=== PATIENT | male | born 1980 | race Caucasian/White ===

== ENCOUNTER → 2020-07-15 10:23 | Outpatient (CLI) | payer OTHER, SELFPAY ==
[2020-07-15 11:14] LABS: COVID19 -Nasal RAPID Negative (Negative)
== END ==
PROVIDERS: Visit Provider Physician Assistant
DX: Z20.822 Contact with and (suspected) exposure to COVID-19 (principal)
CPT/HCPCS: 87635

== ENCOUNTER → 2023-02-07 17:11 | Outpatient (CLI) | payer OTHER, SELFPAY ==
[2023-02-07 19:40] LABS: Rubella Antibody IgG 61.5 IU/mL (>15)
[2023-02-07 19:48] LABS: Hep C Virus Ab w/Reflex Quant NEGATIVE s/c (NEGATIVE)
[2023-02-09 06:22] LABS: Hepatitis A Antibody Total Positive (Negative)
[2023-02-09 08:45] LABS: Rubeola Measles IgG 40.2 AU/mL (Immune >16.4)
[2023-02-10 12:59] LABS: Hepatitis B Core Antibody Negative (Negative)
[2023-02-11 22:31] LABS: QuantiFERON Mitogen Value >10.00 IU/mL (.); QuantiFERON TB Gold Plus Negative (Negative)
== END ==
PROVIDERS: PCP Family Medicine; Referring Provider Family Medicine; Visit Provider Family Medicine
DX: Z00.00 Encounter for general adult medical examination without abnormal findings (principal); Z02.1 Encounter for pre-employment examination; Z11.59 Encounter for screening for other viral diseases
CPT/HCPCS: 36415; 86480; 86704; 86708; 86735; 86762; 86765; 86803

== ENCOUNTER → 2023-02-08 10:18 | Outpatient (CLI) | payer OTHER, SELFPAY ==
[2023-02-09 08:45] LABS: Varicella IgG Antibody 1424 index (Immune >165)
== END ==
PROVIDERS: PCP Family Medicine; Referring Provider Family Medicine; Visit Provider Family Medicine
DX: Z00.00 Encounter for general adult medical examination without abnormal findings (principal); Z02.1 Encounter for pre-employment examination
CPT/HCPCS: 36415; 86787

== ENCOUNTER → 2023-02-11 16:02 | Outpatient (CLI) | payer OTHER, SELFPAY ==
[2023-02-14 04:38] LABS: Hepatitis B Surf Ab Qualitativ Reactive (.)
== END ==
PROVIDERS: PCP Family Medicine; Referring Provider Family Medicine; Visit Provider Family Medicine
DX: Z00.00 Encounter for general adult medical examination without abnormal findings (principal)
CPT/HCPCS: 36415; 86706

== ENCOUNTER → 2023-11-01 11:08 | Outpatient (CLI) | payer OTHER, SELFPAY ==
--- NOTE | 2023-11-01 11:10 | DI.RAD.S_ITS ---
PROCEDURE: XR CHEST 2V INDICATIONS: chronic cough TECHNIQUE: 2 views of the chest were acquired. COMPARISON: None. FINDINGS: Surgical changes and devices: None. Lungs and pleura: Lungs are clear. No pleural effusions or pneumothorax. Mediastinum: Mediastinal contours are normal. Heart size is normal. Bones and chest wall: No suspicious bony abnormalities. Soft tissues appear unremarkable. IMPRESSION: No acute cardiopulmonary pathology. Dictated by: Daniel Tenorio M.D. on 11/01/2023 at 13:18 Approved by: Daniel Tenorio M.D. on 11/01/2023 at 13:19
== END ==
PROVIDERS: PCP Family Medicine; Referring Provider Family Medicine; Visit Provider Family Medicine
DX: R05.3 Chronic cough (principal)
CPT/HCPCS: 71046

== ENCOUNTER → 2023-11-12 15:48 | Outpatient (CLI) | payer OTHER, SELFPAY ==
--- NOTE | 2023-11-12 15:49 | DI.US.S_ITS ---
PROCEDURE: US SOFT TISSUE HEAD AND NECK INDICATIONS: eval lymph node TECHNIQUE: Real-time scanning was performed of the neck region of interest, with image documentation. COMPARISON: None. FINDINGS: No enlarged lymph nodes. No mass lesion. IMPRESSION: No enlarged lymph nodes or abnormal mass. Dictated by: Hayde Vidal M.D. on 11/12/2023 at 16:39 Approved by: Hayde Vidal M.D. on 11/12/2023 at 16:39
== END ==
PROVIDERS: PCP Family Medicine; Referring Provider Family Medicine; Visit Provider Family Medicine
DX: R59.9 Enlarged lymph nodes, unspecified (principal)
CPT/HCPCS: 76536

== ENCOUNTER → 2024-10-01 14:32 | Outpatient (CLI) | payer OTHER, SELFPAY ==
--- NOTE | 2024-10-01 14:35 | DI.RAD.S_ITS ---
PROCEDURE: XR SHOULDER RT MIN 2V INDICATIONS: Progressive right shoulder pain decreasing range of motion TECHNIQUE: 4 views of the shoulder were acquired. COMPARISON: None. FINDINGS: Bones: No fractures or dislocations. No suspicious bony lesions. Visualized ribs appear intact. Possible prior distal clavicle resection. Soft tissues: No suspicious soft tissue calcifications. IMPRESSION: No acute bony abnormality. Dictated by: Deandre Burk M.D. on 10/02/2024 at 11:54 Approved by: Deandre Burk M.D. on 10/02/2024 at 11:54
[2024-10-01 15:52] LABS: Hemoglobin A1C% w Est Avg Glu 5.2 % (4.0-6.0)
[2024-10-01 15:54] LABS: Alanine Aminotransferase 41 IU/L (<50); Albumin 4.6 g/dL (3.5-5.0); Albumin Globulin Ratio 2.3 (1.0-2.8); Alkaline Phosphatase 75 U/L (38-126); Aspartate Aminotransferase 44 IU/L (17-59); BUN Creatinine Ratio 13.3 (6-22); Bilirubin Total 0.8 mg/dL (0.2-1.3); Blood Urea Nitrogen 13 mg/dL (9-20); Calcium 9.5 mg/dL (8.4-10.2); Carbon Dioxide 24 mmol/L (22-32); Chloride 104 mmol/L (98-107); Cholesterol 196 mg/dL (140-199); Estimated Glomerular Filt Rate > 60 mL/min (>60); Glucose 94 mg/dL (70-99); HDL Cholesterol 63 mg/dL (40-60); HEMOLYSIS < 15 (0-50); LDL Cholesterol Calculated 108 mg/dL (<100); Sodium 134 mmol/L (137-145); Total Protein 6.6 g/dL (6.3-8.2); Triglycerides 124 mg/dL (35-150)
== END ==
PROVIDERS: PCP Family Medicine; Referring Provider Family Medicine; Visit Provider Family Medicine
DX: M75.81 Other shoulder lesions, right shoulder (principal); R79.89 Other specified abnormal findings of blood chemistry; R73.9 Hyperglycemia, unspecified; E78.00 Pure hypercholesterolemia, unspecified
CPT/HCPCS: 36415; 73030; 80053; 80061; 83036

== ENCOUNTER → 2024-10-19 08:53 | Outpatient (CLI) | payer OTHER, SELFPAY ==
--- NOTE | 2024-10-19 08:54 | DI.RAD.S_ITS ---
PROCEDURE: FL ARTHROGRAM SHOULDER RT INDICATIONS: rule out rtc tear and labral tear COMPARISON: None. TECHNIQUE: The indications, alternatives, benefits, risks, and complications of the procedure were explained to the patient. Written informed consent was obtained and placed in the chart. The shoulder was examined fluoroscopically and a site for needle placement chosen for entry into the glenohumeral joint from an anterior approach. The skin was prepped and draped in a sterile fashion, and 1% lidocaine infiltrated from skin down to joint capsule. A spinal needle was inserted into the glenohumeral joint, and a small amount of iodinated contrast media injected to confirm intra-articular placement of the needle tip. This was followed by approximately 12 mL dilute solution of a gadolinium containing MR contrast agent. The needle was removed and a dressing was applied. The patient was given postprocedural instructions and sent to the MR suite for MR imaging. FINDINGS: A single fluoroscopic spot image demonstrates intra-articular location of injected iodinated contrast. IMPRESSION: Successful fluoroscopically guided administration of dilute Gadolinium solution into the shoulder joint for MR arthrogram. Dictated by: Daniel Tenorio M.D. on 10/19/2024 at 11:15 Approved by: Daniel Tenorio M.D. on 10/19/2024 at 11:15
--- NOTE | 2024-10-19 09:24 | DI.MRI.S_ITS ---
PROCEDURE: MR SHOULDER RT W CON INDICATIONS: rule out RTC tear and labral tear TECHNIQUE: After the administration of 12 mL of dilute intra-articular Gadolinium contrast, oblique coronal T1 and T2 spin echo with fat saturation, oblique sagittal T1 spin echo with and without fat saturation, oblique sagittal T2 fast spin echo with fat saturation, axial T1 spin echo with fat saturation through the shoulder. COMPARISON: None. FINDINGS: Image quality: Excellent. Rotator cuff: Full-thickness, full width tear of the supraspinatus at the footprint, extending to the anterior footprint of the infraspinatus. Tendon retraction of the supraspinatus to the level of the mid humeral head. The teres minor is unremarkable. The subscapularis is unremarkable. No muscle edema. Mild atrophy of the supraspinatus. Bones and bursae: No significant degenerative changes of the acromioclavicular joint. Type 2 acromion. No os acromiale. Moderate subacromial/subdeltoid bursitis. Contrast extravasating into the subacromial/subdeltoid bursa. Mild subchondral cystic changes at the posterior greater tuberosity, reactive. No acute fracture. No focal chondral defect of the glenohumeral articulation. Capsule and soft tissues: Superior labral tear, extending anteriorly to the anterior superior. No paralabral cyst. The extra-articular biceps tendon is unremarkable. Mild tendinosis of the intra-articular biceps tendon. No intra-articular body. IMPRESSION: 1. Full-thickness, full width tear of the supraspinatus, extending to the anterior infraspinatus. Tendon retraction and mild atrophy of the supraspinatus. 2. Superior labral tear, extending anteriorly to the anterior superior labrum. Dictated by: Penelope Yap M.D. on 10/19/2024 at 13:53 Approved by: Penelope Yap M.D. on 10/19/2024 at 14:03
[2024-10-19] MEDS: SODIUM CHLORIDE 0.9 % 20 ML VIAL IV (11:01)
[2024-10-19] MEDS: LIDOCAINE 1% 20 ML INJ (11:01)
== END ==
PROVIDERS: PCP Family Medicine; Referring Provider Family Medicine; Visit Provider Orthopaedic Surgery
DX: M75.111 Incomplete rotator cuff tear or rupture of right shoulder, not specified as traumatic (principal); M75.81 Other shoulder lesions, right shoulder; M25.511 Pain in right shoulder; M75.51 Bursitis of right shoulder; G89.29 Other chronic pain
CPT/HCPCS: 23350; 73040; 73222; A9579; Q9967

== ENCOUNTER 2025-03-03 07:26 | Day surgery (SDC) | payer OTHER, SELFPAY ==
[2025-02-17 08:39] VITALS: BMI 27.6
[2025-03-03] VITALS (12 sets, daily range): BP systolic 119–181; BP diastolic 72–95; PULSE 55–86; RESP 15–17; TEMP 36.2–36.3; O2SAT 93–100
[2025-03-03] MEDS: LACTATED RINGERS 1,000 ML 42 ML IV ×2 (08:10→09:47)
--- NOTE | 2025-03-03 08:21 | PM.PREOP ---
Pre-operative Note COVID-19 COVID-19 status: Not tested Interval Note History & Physical reviewed/Exam performed by Physician: Yes Changes to H&P: No
--- NOTE | 2025-03-03 09:32 | SUR.OPER ---
Beach chair with trimano shoulder positioner. Lower body on padded OR bed. Head in foam padded head cradle, secured with straps. Non-operative arm secured <90 degrees abduction. Pillow under knees. Safety belt at thigh. Cloth tape over blanket over lower legs. Gel pad under heels. Surgeon in room to assist with positioning. Final position approved by surgeon and anesthesia. All pressure points padded and protected.
[2025-03-03] MEDS: SODIUM CHLORIDE IRRIG SOLUTION 3,000 ML, EPINEPHrine 3 MG IRR ×2 (09:52→10:34)
[2025-03-03] MEDS: ONDANSETRON 4 MG/2 ML INJ IV (11:28)
[2025-03-03] MEDS: ACETAMINOPHEN IV 1,000 MG/100 ML VIAL 400 MG IV (11:32)
--- NOTE | 2025-03-03 11:38 | PM.OP.1 ---
Operative Date/Time/Diagnoses Date of procedure: 03/03/25 Time of procedure: 09:45 Pre-op diagnosis: SLAP tear and rotator cuff tear right shoulder Post-op diagnosis: same Procedure & Clinicians Procedure: 1. R shoulder arthroscopy with Rotator cuff repair 2. Open subpectoral biceps tenodesis Same procedure(s) as scheduled: Yes Surgeon: Dede Montoya Assisted?: Yes Political Aide: Rose Vidal Anesthesia Type: General Operative Notes Findings: see below Closure Type: primary Applied: none Estimated Blood Loss (mL): 50 Blood products transfused: none Procedure in detail: Preoperative diagnosis: 1. R shoulder rotator cuff tear 2. SLAP tear Postoperative diagnosis: 1. ?Full thickness supraspinatus tendon tear 2.? SLAP tear Procedure performed: 1. R shoulder arthroscopy with Rotator cuff repair 2. Open subpectoral biceps tenodesis Implants: 1. Arthrex knotless tension tight button implant system 2.)? Arthrex fibertape and 4.75 Swivelock The patient was met in the preoperative hold area the right upper extremity was signed as the correct extremity. The patient was taken back to the operating room after an interscalene block was performed by anesthesia. The patient was placed in the beach chair position. All bony prominences were padded. The patient was positioned in the beach chair ensuring his neck was in neutral alignment. The patient was prepped and draped in the standard sterile fashion. A time-out was performed confirming the correct patient, correct procedure, correct extremity, initials on the operative site and administration of IV antibiotics A standard posterolateral viewing portal was utilized. A diagnostic arthroscopy was performed. The patient had an inflamed biceps tendon and Type II SLAP tear. A Full thickness supraspinatus tear was identified and debrided.? It was also marked with a spinal needle to view from the subacromial space. The biceps tendon was cut and the stump was debrided. After finishing the diagnostic arthroscopy I then performed the open subpectoral biceps tenodesis. A 3 cm incision was made just inferior to the Pec major in the axillary fold. Dissection was taken down through the subcutaneous tissues. The biceps tendon was identified and retrieved from the wound. An Arthrex cortical button was utilized fix the biceps tendon in place.? As I was tightening the biceps down and reinforced knots were placed.? This maintained an excellent onlay technique. I then placed the arthroscopic instruments in the subacromial space and the subacromial space was debrided. There was very thick bursitis that was debrided. I identified the spinal needle and examined the rotator cuff.? There was a full thickness supraspinatus tear.? The footprint was debrided and the supraspinatus was repaired using a speed fix technique.? This was a tension free repair down to the footprint.? The rotator cuff moved in continuity. ? All as were copiously irrigated and the arthroscopy portals were closed with 3-0 nylon. The biceps tenodesis incision was closed with 2-0 Vicryl 3-0 Monocryl Steri-Strips. The distal clavicle fascia was closed with 0 Ethibond.? And the incision was closed with 2-0 vicryl and 3-0 Nylon.? A sterile dressing was applied of Xeroform, plain gauze, Medipore tape. At the end of the surgery a total of 25 cc of 0.25% Marcaine was placed into the incision sites. Patient was awoken and taken to the PACU in stable condition. Complications: none Post-operative Condition: stable Disposition: PACU
[2025-03-03] MEDS: KETOROLAC 30 MG/ML VIAL IV (11:51)
--- OUTSIDE RECORDS SUMMARY | 2025-03-05 13:13 | XMS_ITS | Clinical Summary ---
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
== END 2025-03-03 13:03 | disposition home or self-care (01) ==
PROVIDERS: Family Provider Family Medicine; PCP Family Medicine; Referring Provider Family Medicine; Visit Provider Orthopaedic Surgery
PROC: (CPT 29827; principal; 2025-03-03 08:45)
DX: S46.011A Strain of muscle(s) and tendon(s) of the rotator cuff of right shoulder, initial encounter (principal); S43.431A Superior glenoid labrum lesion of right shoulder, initial encounter; G89.18 Other acute postprocedural pain; Z87.891 Personal history of nicotine dependence; X50.0XXA Overexertion from strenuous movement or load, initial encounter
CPT/HCPCS: 29827; 23430; 64450; C1713; J0131; J0165; J0330; J0689; J1100; J1171; J1885; J2250; J2405; J2704; J3010; J7120